=== PATIENT | male | born 1935 | race Caucasian/White ===

== ENCOUNTER 2017-11-14 07:46 | Day surgery (SDC) | payer OTHER, BC ==
[~2017-11-14] VITALS: Ht 177.8 cm; Wt 119.7 kg
[~2017-11-14 07:46] MED LIST: ASPIR-LOW81 MG PO; ASPIRIN EC325 MG PO; ENDOCET 5-3251 EACH PO; FERROUS SULFAT325 MG PO; FLOMAX0.4 MG PO; HYDROCODON-ACE1 EAC7 PO; LABETALOL HCL100 MG PO; LIPITOR10 MG PO; LO-DOSE ASPIRIN81 M1 PO; TRANDATE100 MG PO; VALSARTAN-HCTZ1 EAC2 PO
[2017-11-14 08:16] VITALS: BP 140/75
[2017-11-14 17:20] VITALS: BP 150/74
[2017-11-14 19:59] VITALS: BP 143/70
[2017-11-14 23:40] VITALS: BP 126/65
[2017-11-15 03:28] VITALS: BP 127/64
[2017-11-15 05:32] LABS: HEMATOCRIT 34.6 % (38.0-50.0); HEMOGLOBIN 11.6 G/DL (12.5-16.6); MCV 99.4 FL (86-99)
[2017-11-15 08:00] VITALS: BP 105/63
== END 2017-11-15 10:50 | disposition home or self-care (01) ==
LOC: SDC 07:46 → 2SOUTH 12:20 → ENRESERV 12:35 → SDC 12:42 → ENRESERV 14:07 → 3EAST 15:19 → SDC 16:36 → 3EAST 11-15 10:50
PROVIDERS: Orthopaedic Surgery
PROC: 0RRK0J6 Replacement of Left Shoulder Joint with Synthetic Substitute, Humeral Surface, Open Approach (ICD-10-PCS; principal; 2017-11-14)
DX: M19.012 Primary osteoarthritis, left shoulder (principal); I12.9 Hypertensive chronic kidney disease with stage 1 through stage 4 chronic kidney disease, or unspecified chronic kidney disease; N18.9 Chronic kidney disease, unspecified; E11.22 Type 2 diabetes mellitus with diabetic chronic kidney disease; E66.9 Obesity, unspecified; Z68.39 Body mass index [BMI] 39.0-39.9, adult; G47.33 Obstructive sleep apnea (adult) (pediatric); I71.4 Abdominal aortic aneurysm, without rupture; N40.0 Benign prostatic hyperplasia without lower urinary tract symptoms; E78.5 Hyperlipidemia, unspecified; Z85.46 Personal history of malignant neoplasm of prostate; Z85.828 Personal history of other malignant neoplasm of skin; I25.10 Atherosclerotic heart disease of native coronary artery without angina pectoris; Z95.1 Presence of aortocoronary bypass graft; Z98.890 Other specified postprocedural states; Z90.5 Acquired absence of kidney; Z79.82 Long term (current) use of aspirin; Z82.0 Family history of epilepsy and other diseases of the nervous system
CPT/HCPCS: 82948; 85014; 85018; C1776; G0378; J0131; J0690; J1100; J2250; J2405; J2795; J3010; J7030; J7050